=== PATIENT | male | born 1995 | race Caucasian/White ===

== ENCOUNTER → 2017-04-14 | Outpatient (CLI) | payer BC ==
[2013-04-13 09:56] VITALS: BP 123/80
--- NOTE | 2017-04-14 09:44 | US ---
HISTORY: Right upper quadrant abdominal pain for Study: Right upper quadrant abdominal ultrasound Comparison: None. Technique: Multiple riddle scale and color flow Doppler images of the right upper quadrant were obtaine d. Findings: The liver is normal in echotexture and size. No focal intraparenchymal mass or intrahepatic biliary ductal dilatation can be observed. The gallbladder fails to demonstrate evidence for cholelithiasis or layering sludge. The common bile duct is unremarkable measuring 5 mm in diameter. No pericholecy stic fluid or gallbladder wall thickening can be observed. The right kidney appears normal in size without focal parenchymal mass or nephrolithiasis. The right kidney measures 8.4 x 5.0 x 4.2 cm. No hydronephrosis or perirenal fluid can be observed. The incl uded portions of the pancreas are grossly unremarkable. IMPRESSION: Unremarkable sonographic examination of the right upper quadrant of the abdomen. Reported By:
== END ==
LOC: RAD 08:18
PROVIDERS: ATTEND Nurse Practitioner Family
DX: R10.11 Right upper quadrant pain (principal)
CPT/HCPCS: 76705

== ENCOUNTER → 2017-04-16 | Outpatient (CLI) | payer BC ==
[2013-04-13 09:56] VITALS: BP 123/80
--- NOTE | 2017-04-16 11:31 | NM ---
HISTORY: Right upper quadrant pain, nausea Study: Nuclear medicine HIDA scan with ejection fraction Comparison: Gallbladder ultrasound 04/14/2017 Technique: Multiple scintigraphic images of the abdomen were obtained the intravenous administration of 5.5 mCi of technetium labeled Choletec. Following distention of the gallbladder with radiotracer, the patient ingested 8 oz of Ensure Plus. An estimated gallbladder ejection fraction was calculated based on the physiologic response of this i ngestion. Findings: Homogeneous uptake of radiotracer is seen throughout the liver. This intrabiliary ductal system is o bserved normally. The common hepatic and common bile duct grossly appear unremarkable with normal bi liary-bowel transit. The gallbladder is observed to fill normally. After the ingestion of Ensure, a gallbladder ejection fraction of 15.4 % (normal > 35%) is observed. IMPRESSION: 1. Normal hepatobiliary imaging scan. 2. Abnormal gallbladder ejection fraction of 15%. Reported By:
== END ==
LOC: RAD 08:48
PROVIDERS: ATTEND Nurse Practitioner Family
DX: R10.11 Right upper quadrant pain (principal)
CPT/HCPCS: 78227; A9537

== ENCOUNTER 2017-04-23 09:23 | Day surgery (SDC) | payer BC ==
[~2017-04-23 09:23] MED LIST: NS 1000 ML 1,000 ML ONE
[2017-04-23] MEDS ORDERED: TORADOL 30 MG VIAL ONE (09:30)
[2017-04-23] MEDS ORDERED: NORCURON INJ 10 MG VIAL ONE (09:30)
[2017-04-23] MEDS ORDERED: ULTANE GAS IN ONE (09:30)
[2017-04-23] MEDS ORDERED: QUELICIN (OR ANECTINE) ONE (09:30)
[2017-04-23] MEDS ORDERED: ZOFRAN INJ 4 MG VIAL ONE (09:30)
[2017-04-23] MEDS ORDERED: NEOSTIGMINE INJ ONE (09:30)
[2017-04-23] MEDS ORDERED: ROBINUL ONE (09:30)
[2017-04-23] MEDS ORDERED: DIPRIVAN VIAL ONE (09:30)
[2017-04-23] MEDS ORDERED: VERSED ONE (09:30)
[2017-04-23] MEDS: ANCEF VIAL 1 GM ONE ×2 (11:05→12:38)
[2017-04-23] MEDS: NS 100 ML IV 100 ML IV ONE ×2 (11:06→12:38)
[2017-04-23] MEDS ORDERED: FENTANYL INJ 100 mcg ONE (11:33)
[2017-04-23] MEDS ORDERED: DILAUDID INJ ONE (11:34)
[2017-04-23] MEDS ORDERED: MARCAINE 0.25% INJ ONE (12:47)
[2017-04-23] MEDS ORDERED: XYLOCAINE 2% and EPINEPHRINE 1:100,000 ONE (12:47)
[2017-04-23] MEDS ORDERED: NS IRRIGATION 3000 ML 3,000 ML IR ONE (13:15)
[2017-04-23] MEDS ORDERED: DILAUDID INJ IVP PRN (13:55)
[2017-04-23] MEDS ORDERED: BENADRYL INJ 50 MG VIAL IVP PRN (13:55)
[2017-04-23] MEDS ORDERED: PHENERGAN INJ 25 MG IVP PRN (13:55)
[2017-04-23] MEDS ORDERED: ZOFRAN INJ 4 MG VIAL IVP PRN (13:55)
[2017-04-23] MEDS ORDERED: REGLAN INJ 10 MG VIAL IVP PRN (13:55)
--- NOTE | 2017-04-23 14:10 | OR.GENERIC ---
Post-Op Note Generic - Post-Op Note Operative Report: Operative Report Date of Operation: April 23, 2017 Pre-Operative Diagnosis: Biliary dyskinesia. Post-Operative Diagnosis: Biliary dyskinesia. Procedure: Laparoscopic cholecystectomy. Surgeon: Yehuda Quarles MD. Dictaphone Technician: Ambreen Dueñas CRNA. Specimen: Gallbladder. Estimated blood loss: Minimal. Complications: None. Summary: The patient is a 21 year old male who presented with biliary dyskinesia. The patient was offered cholecystectomy. The risk and benefits of the procedure including difficulty with anesthesia, bleeding, infection, conversion to open procedure, bile leak, hernia formation, DVT, as well as PE were discussed with the patient. The patient understood these risks and requested the procedure. On April 23, 2017, the patient was brought to the operative theatre. A time out was performed verifying the patient and procedure. The patient received Ancef for pre-operative antibiosis. After satisfactory induction of general endotracheal anesthesia, the abdomen was prepped with Chloraprep and draped in the usual sterile fashion. The skin and subcutaneous tissue inferior to the umbilicus was anesthetized using local anesthetic. The skin was incised sharply. A 12 mm trocar was placed though the incision and into the peritoneal cavity using the Optiview technique. Carbon dioxide was infiltrated through this trocar to obtain a pneumoperitoneum of 15 mm Hg. A camera was placed through this trocar and swept in all directions. No injury was seen from entering the peritoneal cavity. A site was selected in the subxiphoid location for our 2nd trocar. The skin and fascia was anesthetized using local anesthetic. The skin was incised sharply. A 5 mm trocar was placed into the peritoneal cavity under direct visualization. In a similar manner, two additional 5 mm trocars were placed. The first was placed in the mid- clavicular line approximately 2 fingerbreadths inferior to the left costal margin and a second in the anterior axillary line approximately 2 fingerbreadths inferior to the left costal margin. The patient was placed in reverse Trendelenburg and rotated to the patients left. The gallbladder was grasped at the fundus and elevated cephalad and slightly lateral. The peritoneum on the medial and lateral aspects of the infundibulum of the gallbladder was scored using hook electrocautery. Using blunt dissection, the cystic artery and duct were isolated. The critical view of safety was obtained. Both of these structures were divided between endoclips. The gallbladder was dissected free using hook electrocautery. The gallbladder was placed in an endobag and removed through the umbilical trocar site without difficulty. The trocar and camera were placed back inside the abdomen. Our clips were noted in good position. Bleeding of the gallbladder fossa was controlled using electrocautery. At this point, the 5 mm trocars were removed under direct visualization. No bleeding was seen. The umbilical trocar was then removed and pneumoperitoneum released. The fascia at the umbilicus was closed using a 0-Vicryl placed in a qfximl-an-lugun configuration. The skin edges at all incisions were re-approximated using inverted, interrupted 4-0 Monocryl sutures. Benzoin and Steri-strips were placed. Sterile dressings were placed. The patient was awakened and taken to the recovery room in stable condition. There were no complications. All counts were correct.
[2017-04-23] MEDS ORDERED: PHENERGAN INJ 25 MG ONE (14:41)
[2017-04-23 15:36] VITALS: BP 125/75
== END 2017-04-23 14:36 | disposition home or self-care (01) ==
LOC: SURG1 09:23
PROVIDERS: ATTEND Student in an Organized Health Care Education/Training Program
PROC: 0FT44ZZ Resection of Gallbladder, Percutaneous Endoscopic Approach (ICD-10-PCS; principal; 2017-04-23 11:15)
DX: K82.8 Other specified diseases of gallbladder (principal); K81.9 Cholecystitis, unspecified
CPT/HCPCS: A4216; A4222; S0020; J0330; J0690; J1170; J1885; J2001; J2250; J2405; J2550; J2710; J3010; J3490